=== PATIENT | female | born 1995 | race African-American/Black ===

== ENCOUNTER 2017-03-13 09:20 | Emergency (ER) | payer SELFPAY ==
--- NOTE | 2017-03-13 10:01 | RAD ---
FOUR VIEWS LEFT KNEE: INDICATION: Fall with left knee pain. FINDINGS: No acute fracture or subluxation is demonstrated. No joint capsular distention is noted. IMPRESSION: No acute osseous abnormality. POS: [facility]
[2017-03-13] MEDS ORDERED: Ketorolac Tromethamine 30 MG/ML VIAL ONE (10:04)
== END 2017-03-13 10:21 ==
LOC: ERS 09:20
DX: S80.02XA Contusion of left knee, initial encounter (principal); W17.89XA Other fall from one level to another, initial encounter
CPT/HCPCS: 96372; J1885

== ENCOUNTER 2019-03-25 22:04 | Emergency (ER) | payer SELFPAY | END 2019-03-26 00:22 | disposition home or self-care (01) | LOC: ERS 22:04 | DX: B34.9 Viral infection, unspecified (principal); R51 Headache | CPT/HCPCS: 87081; 87430; 87804; 99283 ==